=== PATIENT | female | born 1985 ===

== ENCOUNTER 2020-10-30 14:15 | Emergency (ER) | payer OTHER ==
[~2020-10-30] VITALS: Ht 162.6 cm; Wt 90.7 kg
[~2020-10-30 14:15] MED LIST: BLOOD LANCETS1 EACH MISCELL; ENALAPRIL MALEA10 MG NGT; GLUCOSE TEST S1 EACH MISCELL; HUMULIN N100 UNIT/2 SUBCUTANEO; INSULIN SYRING1 EA29 SUBCUTANEO; NOVOLIN R100 UNIT/1 SUBCUTANEO
[2020-10-30] MEDS ORDERED: PRENA1 TRUE CO1 EACH (14:42)
[2020-10-30] MEDS ORDERED: ZITHROMAX500 MG PO (15:54)
[2020-10-30] MEDS ORDERED: INTESTINEX680 M1 PO (15:54)
== END 2020-10-30 16:39 | disposition home or self-care (01) ==
LOC: ER 14:15
DX: O26.892 Other specified pregnancy related conditions, second trimester (principal); H66.92 Otitis media, unspecified, left ear; H60.8X2 Other otitis externa, left ear; Z34.02 Encounter for supervision of normal first pregnancy, second trimester

== ENCOUNTER → 2020-11-19 | Outpatient (CLI) | payer OTHER ==
[~2020-11-19] MED LIST changes: +INTESTINEX680 M1 PO; +PRENA1 TRUE CO1 EACH; +ZITHROMAX500 MG PO
== END | disposition home or self-care (01) ==
LOC: PRENATAL 11-13 11:00
PROVIDERS: ATTEND Obstetrics & Gynecology Maternal & Fetal Medicine
DX: O35.0XX1 Maternal care for (suspected) central nervous system malformation in fetus, fetus 1 (principal); O35.3XX1 Maternal care for (suspected) damage to fetus from viral disease in mother, fetus 1; O98.512 Other viral diseases complicating pregnancy, second trimester; O24.312 Unspecified pre-existing diabetes mellitus in pregnancy, second trimester; Z36.89 Encounter for other specified antenatal screening; Z3A.19 19 weeks gestation of pregnancy

== ENCOUNTER → 2020-12-20 | Outpatient (CLI) | payer OTHER | END | disposition home or self-care (01) | LOC: PRENATAL 16:00 | PROVIDERS: ATTEND Obstetrics & Gynecology Maternal & Fetal Medicine | DX: O26.842 Uterine size-date discrepancy, second trimester (principal); O24.312 Unspecified pre-existing diabetes mellitus in pregnancy, second trimester; O99.212 Obesity complicating pregnancy, second trimester; Z36.89 Encounter for other specified antenatal screening; Z3A.24 24 weeks gestation of pregnancy ==

== ENCOUNTER → 2021-01-18 | Outpatient (CLI) | payer OTHER | END | disposition home or self-care (01) | LOC: PRENATAL 11:27 | PROVIDERS: ATTEND Obstetrics & Gynecology Maternal & Fetal Medicine | DX: O24.313 Unspecified pre-existing diabetes mellitus in pregnancy, third trimester (principal); O26.843 Uterine size-date discrepancy, third trimester; O99.213 Obesity complicating pregnancy, third trimester; Z36.89 Encounter for other specified antenatal screening; Z3A.29 29 weeks gestation of pregnancy ==

== ENCOUNTER 2021-02-08 17:26 | Inpatient (IN) | payer OTHER ==
[~2021-02-08] VITALS: Ht 162.6 cm; Wt 97.5 kg
== END 2021-02-12 10:56 | disposition home or self-care (01) | DRG 832 ==
LOC: OBS/DEL 17:26 → LDR 02-09 11:58 → OB/GYN 02-09 11:58
PROVIDERS: ADMIT Obstetrics & Gynecology; ATTEND Obstetrics & Gynecology
PROC: 4A1HXFZ Monitoring of Products of Conception, Cardiac Rhythm, External Approach (ICD-10-PCS; 2021-02-08)
PROC: BY4FZZZ Ultrasonography of Third Trimester, Single Fetus (ICD-10-PCS; principal; 2021-02-11)
DX: O23.43 Unspecified infection of urinary tract in pregnancy, third trimester (principal); O24.013 Pre-existing type 1 diabetes mellitus, in pregnancy, third trimester; Z79.4 Long term (current) use of insulin; Z3A.32 32 weeks gestation of pregnancy; E10.69 Type 1 diabetes mellitus with other specified complication

== ENCOUNTER → 2021-03-14 | Outpatient (CLI) | payer OTHER ==
[~2021-03-14] MED LIST changes: +HUMULIN N100 UNIT/2; +HUMULIN R100 UNIT/1 SUBCUTANEO
== END | disposition home or self-care (01) ==
LOC: PRENATAL 02-20 15:00
PROVIDERS: ATTEND Obstetrics & Gynecology Maternal & Fetal Medicine
DX: O26.843 Uterine size-date discrepancy, third trimester (principal); O24.313 Unspecified pre-existing diabetes mellitus in pregnancy, third trimester; O99.213 Obesity complicating pregnancy, third trimester; Z36.89 Encounter for other specified antenatal screening; Z3A.38 38 weeks gestation of pregnancy

== ENCOUNTER 2021-03-26 07:29 | Inpatient (IN) | payer OTHER ==
[~2021-03-26] VITALS: Ht 162.6 cm; Wt 3.6 kg
[~2021-03-26 07:29] MED LIST changes: -HUMULIN N100 UNIT/2; -HUMULIN R100 UNIT/1 SUBCUTANEO
[2021-03-26] MEDS ORDERED: HUMULIN R100 UNIT/1 SUBCUTANEO ×2 (11:02→11:04)
[2021-03-26] MEDS ORDERED: HUMULIN N100 UNIT/2 (11:03)
== END 2021-03-30 12:03 | disposition home or self-care (01) | DRG 783 ==
LOC: LDR 07:29 → OB/GYN 07:29 → O/R 03-27 13:01 → OB/GYN 03-27 14:37
PROVIDERS: ADMIT Obstetrics & Gynecology; ATTEND Obstetrics & Gynecology
PROC: 10D00Z1 Extraction of Products of Conception, Low, Open Approach (ICD-10-PCS; principal; 2021-03-26)
PROC: 0UB70ZZ Excision of Bilateral Fallopian Tubes, Open Approach (ICD-10-PCS; 2021-03-26)
DX: O33.8 Maternal care for disproportion of other origin (principal); O24.12 Pre-existing type 2 diabetes mellitus, in childbirth; E11.9 Type 2 diabetes mellitus without complications; Z3A.39 39 weeks gestation of pregnancy; Z37.0 Single live birth; Z30.2 Encounter for sterilization; Z20.822 Contact with and (suspected) exposure to COVID-19

== ENCOUNTER 2025-01-26 10:41 | Inpatient (IN) | payer OTHER ==
[~2025-01-26] VITALS: Ht 162.6 cm; Wt 88.9 kg
[2025-01-26 10:30] VITALS: BP 131/81
[~2025-01-26 10:41] MED LIST changes: +HUMULIN N100 UNIT/2; +HUMULIN R100 UNIT/1 SUBCUTANEO; +TRULICITY0.75 MG/0. SQ
[2025-02-01] MEDS ORDERED: CEFAZOLIN SODIUM 1,000 MG VIAL ONE (11:55)
[2025-02-01] MEDS ORDERED: POVIDONE-IODINE 118 ML BOTT TOP ONE (15:00)
[2025-02-01] MEDS ORDERED: NALBUPHINE HCL 20 MG/ML AMPUL IV PRN (16:30)
[2025-02-01] MEDS ORDERED: ONDANSETRON HCL 2 MG/ML VIAL ONE (17:52)
[2025-02-01] MEDS ORDERED: PROMETHAZINE HCL 50 MG/ML AMPUL IM PRN (18:00)
[2025-02-01] MEDS ORDERED: MEPERIDINE HCL 50 MG/ML AMPUL IM ONE (18:00)
[2025-02-01] MEDS ORDERED: PROMETHAZINE HCL 50 MG/ML AMPUL IM ONE ×2 (18:00→18:05)
[2025-02-01] MEDS ORDERED: MEPERIDINE HCL/PF 25 MG/ML VIAL IM PRN (18:00)
[2025-02-01 20:21] VITALS: BP 147/87; O2SAT 97
[2025-02-02] VITALS: BP 150/88
[2025-02-02 06:43] LABS: BASO % 0.1 % (0.1-1.2); EOS # 0.01 (0.04-0.54); EOS % 0.1 % (0.7-7.0); HEMATOCRIT 33.9 % (34.1-44.9); HEMOGLOBIN 10.6 g/dL (11.2-15.7); LYMPH # 1.09 (1.18-3.74); LYMPH % 8.5 % (19.3-53.1); MEAN CORPUSCULAR HEMOGLOBIN 23.9 pg (25.6-32.2); MONO # 0.89 (0.24-0.82); NEUT # 10.73 (1.56-6.13); NEUT % 83.8 % (34.0-71.1); PLATELET COUNT 247 K/uL (163-369); RED BLOOD COUNT 4.43 M/uL (3.93-5.22); RED CELL DISTRIBUTION WIDTH 13.4 % (11.6-14.4)
[2025-02-02] MEDS ORDERED: ACETAMINOPHEN 325 MG TABLET PO PRN (08:00)
[2025-02-02] MEDS ORDERED: OxyCODONE HCL 5 MG TABLET (ROXICODONE) PO PRN (08:00)
[2025-02-02 08:47] VITALS: BP 127/80
[2025-02-02 08:59] VITALS: BP 127/80
[2025-02-02] MEDS ORDERED: SIMETHICONE 125 MG CAPSULE PO SCH (09:00)
[2025-02-02] MEDS ORDERED: PANTOPRAZOLE SODIUM 40 MG TABLET.DR PO SCH (09:00)
[2025-02-02] MEDS ORDERED: DOCUSATE SODIUM 100MG CAP PO SCH (09:00)
[2025-02-02 13:32] VITALS: BP 119/79
[2025-02-02 16:10] VITALS: BP 106/70
[2025-02-03 08:00] VITALS: BP 104/71
[2025-02-03 16:47] VITALS: BP 111/72
[2025-02-03 20:51] VITALS: BP 100/63
[2025-02-03 23:49] VITALS: BP 103/68
[2025-02-04 08:39] VITALS: BP 110/70
[2025-02-04] MEDS ORDERED: ROXYBOND PO (08:57)
== END 2025-02-04 10:33 | disposition home or self-care (01) | DRG 743 ==
LOC: CIR.AMB 02-01 07:00 → EDSTATUS 02-01 07:00 → SURH 02-01 07:00 → OB/GYN 02-01 11:00 → O/R 02-01 11:00 → CIR.AMB 02-01 14:31 → OB/GYN 02-01 17:58
PROVIDERS: ADMIT Obstetrics & Gynecology; ATTEND Obstetrics & Gynecology
PROC: 0UQ20ZZ Repair Bilateral Ovaries, Open Approach (ICD-10-PCS; 2025-02-01)
PROC: 0UT90ZZ Resection of Uterus, Open Approach (ICD-10-PCS; principal; 2025-02-01 07:00)
DX: D25.9 Leiomyoma of uterus, unspecified (principal); N92.0 Excessive and frequent menstruation with regular cycle; N80.03 Adenomyosis of the uterus; N83.01 Follicular cyst of right ovary